=== PATIENT | male | born 1945 | race Caucasian/White ===

== ENCOUNTER 2022-06-25 15:52 | Inpatient (IN) | payer BC, OTHER ==
[~2022-06-25] VITALS: Ht 167.6 cm; Wt 110.7 kg
[2022-06-25] MEDS: NACL 0.9% 1,000 ML IV SCH (06:00)
[2022-06-25] MEDS ORDERED: ONDANSETRON 4 MG ODT TAB PO ONE ×2 (18:45)
[2022-06-25] MEDS ORDERED: NACL 0.9% 1,000 ML IV ONE ×3 (18:45→22:45)
[2022-06-25 19:34] LABS: HEMATOCRIT 44.2 % (36-54); PLATELET COUNT (AUTO) 119 K/uL (130-430)
[2022-06-25 19:39] LABS: MEAN CORPUSCULAR VOLUME 88 fL (79.0-98.0); RED BLOOD CELL COUNT(AUTO) 5.01 MIL/uL (4.2-6.2); RED CELL DISTRIBUTION WIDTH 14.3 % (9.0-15.0); WHITE BLOOD COUNT (AUTO) 13.5 K/uL (4.8-10.8)
[2022-06-25 19:44] LABS: INR 1.2 (0.80-1.20); PROTHROMBIN TIME 12.1 SECS (9.5-12.5)
[2022-06-25 19:47] LABS: ANION GAP 12 (5-15); CALCIUM 9.2 mg/dL (8.4-11.0); CHLORIDE 100 mmol/L (98-107); CREATININE 1.53 mg/dL (0.55-1.30); GLUCOSE 127 mg/dL (70-99); POTASSIUM 3.7 mmol/L (3.5-5.1); UREA NITROGEN, BLOOD 19 mg/dL (8-21)
[2022-06-25 19:57] LABS: BILIRUBIN,URINE NEGATIVE (NEGATIVE); BLOOD, URINE NEGATIVE (NEGATIVE); CLARITY/URINE CLEAR (CLEAR); COLOR,URINE YELLOW (YELLOW); GLUCOSE,URINE NEGATIVE (NEGATIVE); KETONES,URINE NEGATIVE (NEGATIVE); LEUKOCYTE ESTERASE ,URINE NEGATIVE (NEGATIVE); NITRITE, URINE NEGATIVE (NEGATIVE); PH,URINE 5.5 (5.0-8.0); PROTEIN URINE NEGATIVE (NEGATIVE)
[2022-06-25] MEDS ORDERED: MORPHINE 4 MG INJ. 4 MG/ML VIAL IVP ONE (20:00)
[2022-06-25 20:03] LABS: ALANINE AMINOTRANSFERASE 19 U/L (12-78); ALBUMIN 3.5 g/dL (3.4-4.8); ASPARTATE AMINOTRANSFERASE 26 U/L (10-37); THYROID STIMULATING HORMONE 3.38 uIu/mL (0.36-3.74); TOTAL BILIRUBIN 1.5 mg/dL (0.0-1.0)
[2022-06-25] MEDS ORDERED: VANCOMYCIN HCL 1,000 MG in NS 250 ML IV ONE (20:45)
[2022-06-25] MEDS ORDERED: PIPERACILLIN/TAZO 3.375 GM in NS 50 ML IV ONE (20:45)
[2022-06-25] MEDS ORDERED: VANCOMYCIN HCL 500 MG in NS 100 ML IV ONE (20:45)
[2022-06-25 20:49] LABS: BAND % (MANUAL) 16 % (0-6); BASOPHILS % (MANUAL) 0 % (0-2); EOSINOPHILS % (MANUAL) 0 % (0-7); LYMPHOCYTES % (MANUAL) 4 % (20-46); MONOCYTES % (MANUAL) 2 % (0-11)
[2022-06-25] MEDS ORDERED: LIP10 PO (20:52)
[2022-06-25] MEDS ORDERED: HYDR25TA4 PO (20:52)
[2022-06-25] MEDS ORDERED: OMEP20CA15 PO (20:52)
[2022-06-25] MEDS ORDERED: SYN50 PO (20:52)
[2022-06-25] MEDS ORDERED: LOSA50TA3 PO (20:52)
[2022-06-25] MEDS ORDERED: metroNIDAZOLE 500 mg/NS 100 ML IV ONE (21:00)
[2022-06-25] MEDS ORDERED: VANCOMYCIN HCL 1000 MG/VIAL IV ONE ×2 (21:41→21:42)
[2022-06-25] MEDS ORDERED: PIPERACILLIN/TAZOBACTAM 3.375 GM/VIAL (ZOSYN) IV ONE (21:44)
[2022-06-25] MEDS ORDERED: NOREPINEPHRINE BITARTRATE 4 MG in NS 246 ML IV ONE (22:30)
[2022-06-25] MEDS ORDERED: NOREPINEPHRINE 4 MG/4 ML VIAL IV ONE (22:41)
[2022-06-25] MEDS ORDERED: CLINDAMYCIN 900 mg/50mL D5W 50 ML IV ONE (22:45)
[2022-06-25] MEDS ORDERED: NOREPINEPHRINE BITARTRATE 4 MG in NS 246 ML IV PRN (22:45)
[2022-06-25 23:30] VITALS: BP_SYST 92
[2022-06-25] MEDS ORDERED: ceFAZolin SODIUM 2 GM in D5W 100 ML IV SCH (23:45)
[2022-06-25] MEDS ORDERED: DEXTROSE 50% JECT 50 ML DISP.SYRIN IVP PRN (23:45)
[2022-06-25] MEDS ORDERED: MORPHINE 2 MG/ML INJ. SYRINGE IVP PRN (23:45)
[2022-06-25] MEDS ORDERED: MORPHINE 4 MG INJ. 4 MG/ML VIAL IVP PRN (23:45)
[2022-06-25] MEDS ORDERED: ONDANSETRON HCL 4 MG/2 ML VIAL IVP PRN (23:45)
[2022-06-25] MEDS ORDERED: NOREPINEPHRINE BITARTRATE 4 MG in D5W 246 ML IV PRN (23:45)
[2022-06-25] MEDS ORDERED: PANTOPRAZOLE SODIUM 40 MG TAB PO ONE (23:45)
[2022-06-25] MEDS ORDERED: INSULIN REGULAR, HUMAN 100 UNITS/ML, 3 ML VIAL (humuLIN R) SUBCUT PRN (23:45)
[2022-06-25] MEDS ORDERED: ACETAMINOPHEN 325 MG TABLET PO PRN (23:45)
[2022-06-25] MEDS ORDERED: ENOXAPARIN SODIUM 40 MG/0.4 ML SYRINGE SUBCUT ONE (23:45)
[2022-06-25] MEDS ORDERED: NALOXONE HCL 0.4 MG/ML AMP (NARCAN) IVP PRN (23:45)
[2022-06-26] VITALS (25 sets, daily range): BP systolic 87–130
[2022-06-26] MEDS ORDERED: NOREPINEPHRINE 4 MG/4 ML VIAL IV ONE ×2 (02:28→05:49)
[2022-06-26] MEDS ORDERED: ceFAZolin SODIUM 2 GM in NS 100 ML IV SCH ×2 (06:49→08:00)
[2022-06-26 07:03] LABS: RED CELL DISTRIBUTION WIDTH 14.5 % (9.0-15.0)
[2022-06-26 08:02] LABS: HEMATOCRIT 41.3 % (36-54); MEAN CORPUSCULAR VOLUME 88 fL (79.0-98.0); PLATELET COUNT (AUTO) 130 K/uL (130-430); RED BLOOD CELL COUNT(AUTO) 4.68 MIL/uL (4.2-6.2)
[2022-06-26 08:23] LABS: ALANINE AMINOTRANSFERASE 20 U/L (12-78); ALBUMIN 2.9 g/dL (3.4-4.8); ANION GAP 13 (5-15); ASPARTATE AMINOTRANSFERASE 24 U/L (10-37); CALCIUM 8.4 mg/dL (8.4-11.0); CHLORIDE 100 mmol/L (98-107); GLUCOSE 114 mg/dL (70-99); POTASSIUM 3.5 mmol/L (3.5-5.1); TOTAL BILIRUBIN 1.9 mg/dL (0.0-1.0); UREA NITROGEN, BLOOD 23 mg/dL (8-21)
[2022-06-26 08:59] LABS: WHITE BLOOD COUNT (AUTO) 40.7 K/uL (4.8-10.8)
[2022-06-26] MEDS: ATORVASTATIN 10 MG TABLET PO SCH (10:32)
[2022-06-26] MEDS: LEVOTHYROXINE SODIUM 0.05 MG TABLET PO SCH (10:33)
[2022-06-26] MEDS: PANTOPRAZOLE SODIUM 40 MG TAB PO SCH (10:33)
[2022-06-26] MEDS: NACL 0.9% 1,000 ML IV SCH ×2 (10:36→13:45)
[2022-06-26] MEDS ORDERED: VANCOMYCIN HCL 1,250 MG in NS 250 ML IV ONE (13:00)
[2022-06-26] MEDS: PIPERACILLIN/TAZO 2.25G/DEX-IS 50 ML IV SCH ×2 (13:44→20:38)
[2022-06-26 16:17] LABS: BAND % (MANUAL) 19 % (0-6); BASOPHILS % (MANUAL) 0 % (0-2); EOSINOPHILS % (MANUAL) 0 % (0-7); LYMPHOCYTES % (MANUAL) 6 % (20-46); MONOCYTES % (MANUAL) 5 % (0-11)
[2022-06-26] MEDS ORDERED: NOREPINEPHRINE BITARTRATE 8 MG in D5W 242 ML IV PRN (16:45)
[2022-06-26] MEDS: ENOXAPARIN SODIUM 40 MG/0.4 ML SYRINGE SUBCUT SCH (20:38)
[2022-06-26] MEDS: HYDROcodone/ACETAMIN 5-325 MG TAB (NORCO/ VICODIN) PO PRN (23:19)
[2022-06-26] MEDS: TEMAZEPAM 15 MG CAPSULE PO PRN (23:21)
[2022-06-26] MEDS ORDERED: MEROPENEM 1 GM VIAL IV ONE (23:42)
[2022-06-27] VITALS (25 sets, daily range): BP systolic 82–128
[2022-06-27] MEDS: MEROPENEM 1 GM in NS 100 ML IV SCH ×3 (00:13→21:43)
[2022-06-27] MEDS: NACL 0.9% 1,000 ML IV SCH ×4 (00:14→16:34)
[2022-06-27 07:18] LABS: BASOPHILS % (AUTO) 0.2 % (0.0-2.0); EOSINOPHILS # (AUTO) 0.2 K/uL (0.0-0.4); EOSINOPHILS % (AUTO) 1.6 % (0.0-4.0); HEMATOCRIT 36.7 % (36-54); LYMPHOCYTES # (AUTO) 0.7 K/uL (1.0-5.5); LYMPHOCYTES % (AUTO) 4.5 % (20.5-51.5); MEAN CORPUSCULAR VOLUME 89 fL (79.0-98.0); MONOCYTES # (AUTO) 0.7 K/uL (0.0-1.0); MONOCYTES % (AUTO) 4.3 % (1.7-9.3); NEUTROPHILS # (AUTO) 13.5 K/uL (1.8-7.7); NEUTROPHILS % (AUTO) 89.4 % (40.0-70.0); PLATELET COUNT (AUTO) 70 K/uL (130-430); RED BLOOD CELL COUNT(AUTO) 4.14 MIL/uL (4.2-6.2); RED CELL DISTRIBUTION WIDTH 14.9 % (9.0-15.0)
[2022-06-27 08:12] LABS: WHITE BLOOD COUNT (AUTO) 15.1 K/uL (4.8-10.8)
[2022-06-27 08:50] LABS: ALANINE AMINOTRANSFERASE 11 U/L (12-78); ALBUMIN 2.3 g/dL (3.4-4.8); ANION GAP 7 (5-15); ASPARTATE AMINOTRANSFERASE 21 U/L (10-37); CALCIUM 7.9 mg/dL (8.4-11.0); CHLORIDE 107 mmol/L (98-107); CREATININE 1.86 mg/dL (0.55-1.30); GLUCOSE 125 mg/dL (70-99); POTASSIUM 3.3 mmol/L (3.5-5.1); TOTAL BILIRUBIN 0.8 mg/dL (0.0-1.0); UREA NITROGEN, BLOOD 22 mg/dL (8-21)
[2022-06-27] MEDS: LEVOTHYROXINE SODIUM 0.05 MG TABLET PO SCH (10:31)
[2022-06-27] MEDS: PANTOPRAZOLE SODIUM 40 MG TAB PO SCH (10:32)
[2022-06-27] MEDS: ATORVASTATIN 10 MG TABLET PO SCH (10:32)
[2022-06-27] MEDS ORDERED: POTASSIUM CHLORIDE 20 MEQ TAB.PRT.SR PO ONE (11:45)
[2022-06-27] MEDS: VANCOMYCIN HCL 1,250 MG in NS 250 ML IV SCH (14:14)
[2022-06-27] MEDS: HYDROcodone/ACETAMIN 5-325 MG TAB (NORCO/ VICODIN) PO PRN ×2 (16:44→21:45)
[2022-06-27 18:39] LABS: VANCOMYCIN,RANDOM 11.3 ug/mL
[2022-06-27] MEDS ORDERED: TEMAZEPAM 15 MG CAPSULE PO SCH (21:00)
[2022-06-27] MEDS: ENOXAPARIN SODIUM 40 MG/0.4 ML SYRINGE SUBCUT SCH (21:47)
[2022-06-28] MEDS: NACL 0.9% 1,000 ML IV SCH ×4 (04:04→21:29)
[2022-06-28 08:00] VITALS: BP_SYST 138
[2022-06-28] MEDS: PANTOPRAZOLE SODIUM 40 MG TAB PO SCH (09:14)
[2022-06-28] MEDS: LEVOTHYROXINE SODIUM 0.05 MG TABLET PO SCH (09:15)
[2022-06-28] MEDS: ATORVASTATIN 10 MG TABLET PO SCH (09:15)
[2022-06-28] MEDS: MEROPENEM 1 GM in NS 100 ML IV SCH ×2 (09:16→21:16)
[2022-06-28] MEDS: HYDROcodone/ACETAMIN 5-325 MG TAB (NORCO/ VICODIN) PO PRN ×3 (11:12→20:51)
[2022-06-28] MEDS: VANCOMYCIN HCL 1,250 MG in NS 250 ML IV SCH (13:02)
[2022-06-28 13:09] VITALS: BP_SYST 121
[2022-06-28 16:00] VITALS: BP_SYST 128
[2022-06-28 18:29] LABS: EOSINOPHILS # (AUTO) 0.2 K/uL (0.0-0.4); NEUTROPHILS # (AUTO) 4.6 K/uL (1.8-7.7)
[2022-06-28 18:34] LABS: BASOPHILS % (AUTO) 0.6 % (0.0-2.0); EOSINOPHILS % (AUTO) 3.4 % (0.0-4.0); HEMATOCRIT 36.9 % (36-54); LYMPHOCYTES # (AUTO) 0.7 K/uL (1.0-5.5); LYMPHOCYTES % (AUTO) 11.6 % (20.5-51.5); MEAN CORPUSCULAR VOLUME 89 fL (79.0-98.0); MONOCYTES # (AUTO) 0.4 K/uL (0.0-1.0); MONOCYTES % (AUTO) 7.4 % (1.7-9.3); RED BLOOD CELL COUNT(AUTO) 4.15 MIL/uL (4.2-6.2); RED CELL DISTRIBUTION WIDTH 14.6 % (9.0-15.0)
[2022-06-28 18:37] LABS: PLATELET COUNT (AUTO) 60 K/uL (130-430)
[2022-06-28 18:47] LABS: ANION GAP 4 (5-15); CALCIUM 7.6 mg/dL (8.4-11.0); CHLORIDE 107 mmol/L (98-107); CREATININE 1.47 mg/dL (0.55-1.30); GLUCOSE 121 mg/dL (70-99); UREA NITROGEN, BLOOD 16 mg/dL (8-21)
[2022-06-28 18:53] LABS: ALANINE AMINOTRANSFERASE 11 U/L (12-78); ALBUMIN 2.2 g/dL (3.4-4.8); ASPARTATE AMINOTRANSFERASE 18 U/L (10-37); TOTAL BILIRUBIN 0.7 mg/dL (0.0-1.0)
[2022-06-28 19:00] VITALS: BP_SYST 130
[2022-06-28 19:51] VITALS: BP_SYST 132
[2022-06-28] MEDS: ENOXAPARIN SODIUM 40 MG/0.4 ML SYRINGE SUBCUT SCH (20:49)
[2022-06-28] MEDS: TEMAZEPAM 15 MG CAPSULE PO PRN (21:26)
[2022-06-29 02:46] VITALS: BP_SYST 131
[2022-06-29] MEDS: NACL 0.9% 1,000 ML IV SCH ×3 (04:50→17:22)
[2022-06-29 05:14] VITALS: BP_SYST 135
[2022-06-29 06:59] LABS: BASOPHILS % (AUTO) 0.4 % (0.0-2.0); EOSINOPHILS # (AUTO) 0.2 K/uL (0.0-0.4); EOSINOPHILS % (AUTO) 4.3 % (0.0-4.0); HEMATOCRIT 34.4 % (36-54); LYMPHOCYTES # (AUTO) 0.6 K/uL (1.0-5.5); LYMPHOCYTES % (AUTO) 12.7 % (20.5-51.5); MEAN CORPUSCULAR VOLUME 88 fL (79.0-98.0); MONOCYTES # (AUTO) 0.4 K/uL (0.0-1.0); NEUTROPHILS # (AUTO) 3.5 K/uL (1.8-7.7); NEUTROPHILS % (AUTO) 74.6 % (40.0-70.0); PLATELET COUNT (AUTO) 65 K/uL (130-430); RED BLOOD CELL COUNT(AUTO) 3.89 MIL/uL (4.2-6.2); RED CELL DISTRIBUTION WIDTH 14.7 % (9.0-15.0); WHITE BLOOD COUNT (AUTO) 4.8 K/uL (4.8-10.8)
[2022-06-29 08:04] LABS: ANION GAP 7 (5-15); CALCIUM 7.4 mg/dL (8.4-11.0); CHLORIDE 108 mmol/L (98-107); CREATININE 1.31 mg/dL (0.55-1.30); GLUCOSE 105 mg/dL (70-99); POTASSIUM 3.9 mmol/L (3.5-5.1); UREA NITROGEN, BLOOD 14 mg/dL (8-21)
[2022-06-29] MEDS: LEVOTHYROXINE SODIUM 0.05 MG TABLET PO SCH (08:47)
[2022-06-29] MEDS: CEFEPIME 1 GM in D5W 50 ML IV SCH ×2 (08:47→20:49)
[2022-06-29] MEDS: ATORVASTATIN 10 MG TABLET PO SCH (08:47)
[2022-06-29] MEDS: MEROPENEM 1 GM in NS 100 ML IV SCH (08:47)
[2022-06-29] MEDS: PANTOPRAZOLE SODIUM 40 MG TAB PO SCH (08:47)
[2022-06-29 09:00] VITALS: BP_SYST 135
[2022-06-29] MEDS ORDERED: CEFEPIME 2 GM in D5W 100 ML IV SCH (09:00)
[2022-06-29] MEDS: HYDROcodone/ACETAMIN 5-325 MG TAB (NORCO/ VICODIN) PO PRN ×4 (10:30→20:50)
[2022-06-29] MEDS: VANCOMYCIN HCL 1,500 MG in NS 250 ML IV SCH (13:14)
[2022-06-29 17:00] VITALS: BP_SYST 130
[2022-06-29 20:05] VITALS: BP_SYST 148
[2022-06-29] MEDS: levoFLOXacin 500 MG TABLET PO SCH (20:49)
[2022-06-29] MEDS: ENOXAPARIN SODIUM 40 MG/0.4 ML SYRINGE SUBCUT SCH (20:51)
[2022-06-29] MEDS: TEMAZEPAM 15 MG CAPSULE PO PRN (22:47)
[2022-06-30 00:47] VITALS: BP_SYST 141
[2022-06-30] MEDS: NACL 0.9% 1,000 ML IV SCH ×2 (03:21→07:30)
[2022-06-30 07:02] LABS: BASOPHILS % (AUTO) 0.4 % (0.0-2.0); EOSINOPHILS # (AUTO) 0.2 K/uL (0.0-0.4); EOSINOPHILS % (AUTO) 4.4 % (0.0-4.0); HEMATOCRIT 36.6 % (36-54); HEMOGLOBIN 12.4 g/dL (14.0-18.0); LYMPHOCYTES # (AUTO) 0.5 K/uL (1.0-5.5); LYMPHOCYTES % (AUTO) 12.6 % (20.5-51.5); MEAN CORPUSCULAR HEMOGLOBIN 30 pg (27-31); MEAN CORPUSCULAR HGB CONC 34 % (32-36); MEAN CORPUSCULAR VOLUME 88 fL (79.0-98.0); MONOCYTES # (AUTO) 0.4 K/uL (0.0-1.0); MONOCYTES % (AUTO) 11.1 % (1.7-9.3); NEUTROPHILS # (AUTO) 2.8 K/uL (1.8-7.7); NEUTROPHILS % (AUTO) 71.5 % (40.0-70.0); PLATELET COUNT (AUTO) 63 K/uL (130-430); RED BLOOD CELL COUNT(AUTO) 4.18 MIL/uL (4.2-6.2); RED CELL DISTRIBUTION WIDTH 14.5 % (9.0-15.0); WHITE BLOOD COUNT (AUTO) 3.9 K/uL (4.8-10.8)
[2022-06-30] MEDS: LEVOTHYROXINE SODIUM 0.05 MG TABLET PO SCH (08:46)
[2022-06-30] MEDS: CEFEPIME 1 GM in D5W 50 ML IV SCH ×2 (08:46→22:08)
[2022-06-30] MEDS: ATORVASTATIN 10 MG TABLET PO SCH (08:46)
[2022-06-30] MEDS: PANTOPRAZOLE SODIUM 40 MG TAB PO SCH (08:46)
[2022-06-30 09:20] LABS: ALANINE AMINOTRANSFERASE 11 U/L (12-78); ALBUMIN 2.2 g/dL (3.4-4.8); ANION GAP 6 (5-15); ASPARTATE AMINOTRANSFERASE 14 U/L (10-37); CHLORIDE 107 mmol/L (98-107); CREATININE 1.23 mg/dL (0.55-1.30); GLUCOSE 101 mg/dL (70-99); POTASSIUM 3.9 mmol/L (3.5-5.1); TOTAL BILIRUBIN 0.8 mg/dL (0.0-1.0); UREA NITROGEN, BLOOD 11 mg/dL (8-21)
[2022-06-30] MEDS: HYDROcodone/ACETAMIN 5-325 MG TAB (NORCO/ VICODIN) PO PRN ×3 (10:11→22:19)
[2022-06-30 11:06] LABS: HEPATITIS A AB, IgM Negative (Negative); HEPATITIS B CORE AB, IgM Negative (Negative); HEPATITIS B SURFACE AG Negative (Negative)
[2022-06-30] MEDS: VANCOMYCIN HCL 1,500 MG in NS 250 ML IV SCH (12:46)
[2022-06-30 13:37] VITALS: BP_SYST 133
[2022-06-30] MEDS: ACYCLOVIR 400 MG TABLET PO SCH ×2 (17:56→21:05)
[2022-06-30] MEDS: LIDOCAINE VISCOUS 2%, 15 ML UDC MM SCH ×2 (17:56→21:05)
[2022-06-30 18:16] VITALS: BP_SYST 158
[2022-06-30 20:05] VITALS: BP_SYST 136
[2022-06-30] MEDS: levoFLOXacin 500 MG TABLET PO SCH (21:05)
[2022-06-30] MEDS: TEMAZEPAM 15 MG CAPSULE PO PRN (23:17)
[2022-07-01] VITALS: BP_SYST 121
[2022-07-01] MEDS: NACL 0.9% 1,000 ML IV SCH (03:43)
[2022-07-02 20:06] LABS: MYCOPLASMA PNEUMONIAE IgM <770 U/mL (0-769)
== END 2022-07-01 06:45 | disposition left against medical advice (07) | DRG 871 ==
LOC: SED 15:52 → SIC 22:33 → UNDOADMIN 22:33 → SIC 23:33 → STU 06-27 23:00
PROVIDERS: ADMIT Internal Medicine; ATTEND Internal Medicine
DX: A41.9 Sepsis, unspecified organism (principal); E43 Unspecified severe protein-calorie malnutrition; N17.0 Acute kidney failure with tubular necrosis; R65.21 Severe sepsis with septic shock; J18.9 Pneumonia, unspecified organism; L03.115 Cellulitis of right lower limb; I85.00 Esophageal varices without bleeding; L02.91 Cutaneous abscess, unspecified; I10 Essential (primary) hypertension; E78.5 Hyperlipidemia, unspecified; E03.9 Hypothyroidism, unspecified; E66.9 Obesity, unspecified; K70.30 Alcoholic cirrhosis of liver without ascites; R73.03 Prediabetes; E78.00 Pure hypercholesterolemia, unspecified; Z20.822 Contact with and (suspected) exposure to COVID-19; D69.6 Thrombocytopenia, unspecified; Z87.891 Personal history of nicotine dependence; Z88.6 Allergy status to analgesic agent; Z79.899 Other long term (current) drug therapy; Z87.11 Personal history of peptic ulcer disease; Z68.39 Body mass index [BMI] 39.0-39.9, adult
CPT/HCPCS: 36415; 70450-TC; 71045; 71250-TC; 73590-TC; 73720; 76376; 76770; 80048; 80053; 80074; 80202; 81003; 82962; 83036; 83605; 83735; 84100; 84439; 84443; 84484; 85007; 85025; 85027; 85610-TC; 85651-TC; 85730-TC; 86140; 86738; 87040; 87081; 87086; 93005; 93306; 93970; 96365; 96366; 96367; 96368; 99291; G0378; J0692; J1650; J2001; J2185; J2270; J2543; J3370; J3490; J7050; J7060; Q0162